=== PATIENT | female | born 1960 ===

== ENCOUNTER 2017-11-12 12:55 | Outpatient (CLI) | payer OTHER ==
[2017-11-12] MEDS ORDERED: Iopamidol 370 76% 100 ML VIAL ONE (14:37)
== END 2017-11-12 12:56 | disposition home or self-care (01) ==
LOC: BICCT 12:55
PROVIDERS: ATTEND Psychiatry & Neurology Neurology
DX: I67.1 Cerebral aneurysm, nonruptured (principal); G43.019 Migraine without aura, intractable, without status migrainosus; Z98.890 Other specified postprocedural states
CPT/HCPCS: 70496